=== PATIENT | female | born 1935 | race African-American/Black ===

== ENCOUNTER 2023-03-07 16:13 | Inpatient (IN) | payer OTHER ==
[~2023-03-07] VITALS: Ht 157.5 cm; Wt 52.4 kg
[2023-03-07 17:45] LABS: HEMATOCRIT. 40.3 % (36.0-48.0); HEMOGLOBIN. 12.9 g/dL (12.0-16.0); MEAN CORPUSCULAR HEMOGLOBIN 32.5 pg (28.0-32.0); MEAN CORPUSCULAR VOLUME 101.4 fL (81.0-99.0); MEAN PLATELET VOLUME 11.1 fl (7.4-10.4); PLATELET 210 x1000/uL (130-400); RED BLOOD CELL COUNT 3.97 mill/uL (4.2-5.4); RED CELL DISTRIBUTION WIDTH 14.8 % (11.6-14.6)
[2023-03-07 17:54] LABS: CHLORIDE 102 mEq/L (98-107)
[2023-03-07 18:05] LABS: BETA HYDROXYBUTYRATE 7.3 mMol/L (0.0-0.3)
[2023-03-07] MEDS ORDERED: INSULIN REGULAR (DRIP) 100 UNITS in SODIUM CHLORIDE 0.9% 99 ML IV SCH (18:15)
[2023-03-07] MEDS ORDERED: INSULIN REGULAR 100U/100ML PMX 100 ML IV SCH (18:16)
[2023-03-07 20:09] LABS: PLATELET ESTIMATE NORMAL
[2023-03-07 20:14] LABS: BG BASE EXCESS -2.5 mmol/L (-2.0-2.0); BG CARBOXYHEMOGLOBIN 0.4 % (0.5-1.5); BG DEOXYHEMOGLOBIN 2.6 % (0.0-5.0); BG FRACTION INSPIRED OXYGEN 21; BG HCO3 ACT 22.5 mmol/L (22.0-26.0); BG METHEMOGLOBIN 0.2 % (0.0-1.5); BG OXYGEN SATURATION 97.4 % (92.0-98.5); BG OXYHEMOGLOBIN 96.8 % (94.0-97.0); BG PCO2 39.8 mmHg (35.0-45.0); BG PH 7.371 (7.350-7.450); BG PO2 106.1 mmHg (75.0-100.0); BG SAMPLE SITE LEFT RADIAL; BG TOTAL HEMOGLOBIN 13.1 g/dL (12.0-18.0); BG VENT MODE ROOM AIR
[2023-03-07] MEDS ORDERED: IPRATROPIUM/ALBUTEROL 0.5-3(2.5)MG/3ML NEB HHN PRN (20:15)
[2023-03-07] MEDS: SODIUM CHLORIDE 0.9% 1,000 ML IV SCH (20:32)
[2023-03-07 21:37] LABS: CHLORIDE 107 mEq/L (98-107)
[2023-03-07 21:44] LABS: PHOSPHORUS 2.8 mg/dL (2.5-4.9)
[2023-03-07] MEDS ORDERED: POTASSIUM CHLORIDE 20MEQ TABLET SR PO NR (23:00)
[2023-03-07] MEDS ORDERED: INSULIN GLARGINE 100 UNITS/ML SUBCUT SCH (23:00)
[2023-03-07] MEDS ORDERED: DEXTROSE 50% WATER 50ML SYRINGE IV PRN (23:00)
[2023-03-08] VITALS (7 sets, daily range): BP systolic 118–155; BP diastolic 54–93; PULSE 61–72; RESP 14–16; TEMP 91–98.4; O2SAT 98
[2023-03-08] MEDS: SODIUM CHLORIDE 0.9% 1,000 ML IV SCH (05:24)
[2023-03-08] MEDS: BLOOD SUGAR DIAGNOSTIC STRIP TEST SCH ×3 (06:50→16:51)
[2023-03-08] MEDS: INSULIN LISPRO 100 UNITS/ML SUBCUT SCH ×3 (08:08→17:17)
[2023-03-08] MEDS ORDERED: INSULIN GLARGINE 100 UNITS/ML SUBCUT SCH ×2 (10:00→22:00)
[2023-03-08] MEDS ORDERED: HYDROCODONE/ACETAMINOPHEN 5/325MG TABLET PO PRN (13:00)
[2023-03-08] MEDS ORDERED: ONDANSETRON HCL 4MG/2ML INJ IV PRN (13:00)
[2023-03-08] MEDS ORDERED: ACETAMINOPHEN 325MG TABLET PO PRN (13:00)
[2023-03-08] MEDS ORDERED: SODIUM CHLORIDE 0.9% 1,000 ML IV SCH (13:00)
[2023-03-08 13:26] LABS: CHLORIDE 111 mEq/L (98-107)
[2023-03-08 13:29] LABS: HEMATOCRIT. 36.7 % (36.0-48.0); HEMOGLOBIN. 12.1 g/dL (12.0-16.0); MEAN CORPUSCULAR HEMOGLOBIN 32.5 pg (28.0-32.0); MEAN PLATELET VOLUME 11.1 fl (7.4-10.4); PLATELET 193 x1000/uL (130-400); RED BLOOD CELL COUNT 3.71 mill/uL (4.2-5.4); RED CELL DISTRIBUTION WIDTH 14.1 % (11.6-14.6)
[2023-03-08] MEDS ORDERED: ENOXAPARIN 40MG/0.4ML SYR SUBCUT SCH (14:00)
[2023-03-08 14:11] LABS: PLATELET ESTIMATE NORMAL
[2023-03-08] MEDS ORDERED: NALOXONE HCL 0.4MG/ML VIAL IV PRN (14:45)
== END 2023-03-08 21:07 | disposition short-term general hospital (02) | DRG 638 ==
LOC: ER 16:13 → EDBEDREQSVC 19:11 → MICUSO 20:03 → EDBEDREQ 20:27 → EDBEDREQSVC 23:50 → 3WST 03-08 03:18
PROVIDERS: ADMIT Internal Medicine; ATTEND Internal Medicine
DX: E11.10 Type 2 diabetes mellitus with ketoacidosis without coma (principal); E44.0 Moderate protein-calorie malnutrition; I10 Essential (primary) hypertension; E11.65 Type 2 diabetes mellitus with hyperglycemia; Z79.4 Long term (current) use of insulin; Z68.21 Body mass index [BMI] 21.0-21.9, adult
CPT/HCPCS: 36415; 36600; 71045; 80048; 80053; 82010; 82375; 82805; 82962; 83036; 83605; 83735; 83880; 84100; 84145; 85025; 93970; 99291; J1650; J1815; J7050